=== PATIENT | female | born 1960 | race Caucasian/White ===

== ENCOUNTER 2021-10-09 05:50 | Day surgery (SDC) | payer MEDICAID ==
[~2021-10-09] VITALS: Ht 157.5 cm; Wt 72.6 kg
[2021-10-09] MEDS ORDERED: fentaNYL CITRATE/PF 100 MCG/2 ML AMP ONE (06:45)
[2021-10-09] MEDS ORDERED: SIMETHICONE 40 MG/0.6 ML ML ONE (06:45)
[2021-10-09] MEDS ORDERED: MEPERIDINE 100 MG INJ. 100 MG/ML VIAL ONE (06:46)
[2021-10-09] MEDS: MIDAZOLAM HCL 5 MG/5 ML VIAL ONE ×2 (07:39→07:44)
[2021-10-09 14:27] VITALS: BP_SYST 118
== END 2021-10-09 09:02 | disposition home or self-care (01) ==
LOC: SMU 05:50 → SDS 05:50
PROVIDERS: ATTEND Internal Medicine Gastroenterology
DX: Z12.11 Encounter for screening for malignant neoplasm of colon (principal); K57.30 Diverticulosis of large intestine without perforation or abscess without bleeding; K64.9 Unspecified hemorrhoids; Z20.822 Contact with and (suspected) exposure to COVID-19
CPT/HCPCS: 36415 ×2; 45378; 82962; 87426; 99152; G0378; J2175; J2250; U0003; J3010